=== PATIENT | female | born 1980 | race Caucasian/White ===

== ENCOUNTER 2017-10-08 06:44 | Day surgery (SDC) | payer OTHER, MEDICAID, SELFPAY ==
[2017-09-28 11:07] VITALS: BMI 25.2
[2017-10-08] VITALS (17 sets, daily range): BP systolic 85–116; BP diastolic 46–80; PULSE 58–128; RESP 12–26; TEMP 36.1–36.7; O2SAT 94–100; BMI 25.2
--- NOTE | 2017-10-08 | PATH_ITS ---
[facility] Accession Number: [id number] . 01 Material submitted: . UTERUS . 02 Diagnosis: Uterus, Hysterectomy: 1. Leiomyoma. 2. Disordered proliferative endometrium. 3. Negative for atypia or hyperplasia. 4. No evidence of malignancy. MRV/10/10/2017 . 02 Electronically signed: . Pili Guevara MD, Pathologist NPI- [id number] . 01 Gross description: . Received in formalin, labeled 1-Uterus, is a morcellated uterus (115 grams, 13.5 x 12.2 x 4.3 cm in aggregate). The ovaries, fallopian tubes, and cervix are absent. The specimen cannot be oriented, and the endometrium and myometrium cannot be grossly measured. The parenchyma is faustin-anne and contains a solid firm white whorled well-circumscribed homogenous nodule (1.8 x 1.5 x 1.3 cm). The serosa is pale anne smooth and shiny. Choir Director tissue is submitted in cassettes A1-A4. ([id number]) /[facility] . 02 Pathologist provided ICD-10: D25.9 . 02 CPT . 298946 Performed at: 01 [facility] [address], [place], [place] [id number] MD Vijay Mcmillan MD Phone: [phone] Performed at: [address] [facility] [address] [place], [place] [id number] MD Walt Simons MD Phone: [phone]
--- NOTE | 2017-10-08 06:50 | SUR.OPER ---
Lithotomy on padded OR bed. Shanor-Northvue Pad Positioner under torso. Head on pillow, arms padded and tucked at sides. Legs secured in padded yellow fins stirrups.
[2017-10-08] MEDS: LACTATED RINGERS 1,000 ML 42 ML IV (07:38)
--- NOTE | 2017-10-08 07:40 | PM.PREOP ---
Pre-operative Note Interval Note Pre-op Check: History & Physical Reviewed by Physician and Exam Performed
[2017-10-08] MEDS: CEFAZOLIN 2 GM/100 ML FROZ.PIGGY IV (07:50)
[2017-10-08] MEDS: BUPIVACAINE 0.5% W/ EPI (PF) 30 ML VIAL INJ (08:39)
[2017-10-08] MEDS: ROPIVACAINE 2% PF 2 MG/ML 20ML AMP 20 ML INJ (08:42)
[2017-10-08] MEDS: fentaNYL 100 MCG/2 ML INJ 50 MCG IV (10:05)
[2017-10-08] MEDS: LORazepam 2 MG/ML SYRINGE 0.5 MG IV (10:17)
[2017-10-08] MEDS: DEXTROSE 5%-LACTATED RINGERS 1,000 ML 100 ML IV ×2 (12:37→23:15)
[2017-10-08] MEDS: OXYCODONE/ACETAMINOPHEN 5/325 TABLET 2 TAB PO ×4 (12:40→23:17)
[2017-10-08] MEDS: KETOROLAC 30 MG/ML VIAL IV ×2 (12:44→17:27)
[2017-10-08] MEDS: LACTATED RINGERS 500 ML 1000 ML IV (19:51)
[2017-10-08] MEDS: DOCUSATE 250 MG CAPSULE PO (20:36)
--- NOTE | 2017-10-08 22:29 | PC.NURSE ---
Patient is a&ox3, 97% on RA, rates pain 4/10 when reassessed, states this is tolerable. BP dropped to 80's systolic, rechecked it 1 and 2 hours later, was still 80's systolic; per dr. Chaudhari, gave LR bolus 500 ml. BP up to 92 systolic when reassessed. patient denies nausea, dizziness, sob. ivy is draining to gravity, put out 650 ml this shift, clear and yellow. dressings are c/d/i, 1 tablet of percocet has been effective for pain control, per patient. HR was tachycardic during shift assessment, now 72 bpm. call light in reach. at bedside.
[2017-10-09] MEDS: KETOROLAC 30 MG/ML VIAL IV ×2 (00:07→06:11)
[2017-10-09 04:20] VITALS: BP 91/54; PULSE 71; RESP 16; TEMP 37.1; O2SAT 95
[2017-10-09] MEDS: OXYCODONE/ACETAMINOPHEN 5/325 TABLET 2 TAB PO ×5 (04:29→15:57)
--- NOTE | 2017-10-09 04:32 | PC.NURSE ---
Patient complains of 5/10 lower abdominal pain but only wanted to take 1 Percocet. Declined offer of warm blanket to help ease discomfort.
[2017-10-09 06:36] LABS: Add Manual Diff / Slide Review NO; Basophils Percent Auto 0.2 % (0-2); Eosinophils Percent Auto 0.5 % (2-4); Hematocrit 31.7 % (36-46); Hemoglobin 10.8 g/dL (12.0-16.0); Lymphocytes Percent Auto 27.6 % (25-40); Mean Corpuscular HGB Conc 34.1 % (30-36); Mean Corpuscular Hemoglobin 30.3 PG (26-34); Mean Corpuscular Volume 89.1 fL (80-100); Monocytes Percent Auto 12.6 % (3-14); Neutrophils Absolute Auto 3900 /uL (3000-5900); Neutrophils Percent Auto 59.1 % (50-75); Platelet Count 142 X10^3/uL (150-400); Red Blood Cell Count 3.55 X10^6/uL (4.0-5.2); Red Cell Distribution Width 13.2 % (11.6-14.8); White Blood Cell Count 6.6 X10^3/uL (4.5-11.0)
[2017-10-09 08:00] VITALS: BP 102/59; PULSE 84; RESP 17; TEMP 37.2; O2SAT 97
[2017-10-09 12:00] VITALS: BP 100/56; PULSE 77; RESP 15; TEMP 37.1; O2SAT 98
--- NOTE | 2017-10-09 13:02 | PC.NURSE ---
Dayshift Note: Mena removed this am at 0830. Pt with one small void at 1115. Encouraged to drink more fluids. Percocet for pain with pain well-cotnrolled, rated at 3-4/10 in abdomen. Denies nausea, tolerating diet. at bedside. Will continue to monitor, notify MD with changes.
--- NOTE | 2017-10-09 14:24 | CM.DANOTE ---
DCP Chart Review Patient is a 37 year old female who was admitted [facility] on 10/08/17 for Surgical procedure. Pt has [employer] for insurance and her PCP is Dr. Fonseca. Per MD, pt seemed to have tolerated procedure well. Per RN, pt has some pain and supportive spouse bedside but no needs currently identified. Pt independent in her room. SW did not complete bedside assessment due to triage needs. Plan: SW to follow for likely d/c home with spouse when medically stable. No SW needs at this time, please refer if indicated. SOLITARIO Noble
[2017-10-09 15:45] VITALS: BP 93/53; PULSE 62; RESP 16; TEMP 36.6; O2SAT 98
--- NOTE | 2017-10-09 17:19 | PC.NURSE ---
0058 Discharge note: Patient given discharge instructions, VSS and ambulating in room. Pain controlled with Percalone 2 tabs. Verbalized understanding of discharge instructions, discussed importance of F/U with Rosalina Castano in 2 weeks. Prescription given to patient as ordered. Patient accompanied with .
--- NOTE | 2017-11-27 05:02 | P.OP_ITS ---
Operative Date/Time/Diagnoses Date of procedure: 10/08/17 Time of procedure: 10:00 Pre-op diagnosis: Pelvic pain Menorrhagia Fibroids Post-op diagnosis: same Procedure: Procedures Operation Date: 10/08/17 07:45 Actual Procedures Side Surgeon p Laparoscopic Supracervical Hysterectomy Not Applicable Tarah Romano MD Indications: Menorrhagia Pelvic pain Fibroid Surgeon: Tarah Romano Endbander: Rita Chaudhari Anesthesia Type: General Operative Notes Findings: 6 week size anteverted uterus Normal ovaries Normal liver and gallbladder Normal appendix Closure Type: primary Specimen(s): uterus Applied: catheter (Removed at the end of the case) Estimated blood loss (mL): 20 Blood products transfused: none Procedure in detail: The patient was taken to the operating room where she was placed in the dorsal supine position. After adequate general endotracheal anesthesia was achieved, she was placed in the dorsal lithotomy position, and prepped and draped in the usual sterile fashion. A timeout was performed. A bivalve speculum was placed into the vagina and the anterior lip of the cervix grasped with a single-tooth tenaculum. The cervical os was sequentially dilated until the ZUMI uterine manipulator could pass easily into the endometrial cavity. The single-tooth tenaculum was removed from the anterior lip of the cervix, and the bivalve speculum was removed from the vagina. Attention was then turned to the abdomen where 6 mL of half percent Marcaine with epinephrine were injected in the umbilical fold. A 5 mm incision was made. The Verhees needle was placed into the peritoneal cavity, and its placement confirmed by aspiration and drop test. The abdominal cavity was insufflated with 2.8 L of CO2. The Verhees needle was removed. A 5 mm trocar was placed without difficulty. 2 other incisions were made midway between the pubic symphysis and umbilicus after 5 mL of half percent Marcaine with epinephrine were injected. These were 5 mm incisions. Two 5 mm trochars were placed under direct visualization. The right cornua of the uterus was grasped with an atraumatic grasper. Using the plasma kinetic with settings of 40 W the utero ovarian vessels were cauterized and cut. The round ligament and broad ligament was cauterized and cut with plasma kinetic. Hemostasis was achieved. The bladder flap was created using the plasma kinetic with cautery and cut [facility] across. The uterine arteries on the right side were extensively cauterized with plasma kinetic. All of this was repeated on the left side. The remainder of the bladder flap was created using the plasma kinetic, and the bladder taken down off the lower uterine segment and cervix. Using the L[place]oop , the cervix was amputated from the uterus 2 cm above the uterosacral ligaments , after the ZUMI uterine manipulator was removed from the uterus. There was a small amount of bleeding noted from the posterior edge of the cervix, and this was cauterized for hemostasis. A sponge stick was placed into the vagina. 6 mL of half percent Marcaine with epinephrine were injected above the pubic symphysis. A 12 mm trocar was placed. An Endobag was placed through the suprapubic trocar and the uterus placed into the Endobag. The trocar was removed. The Todd placed into the endobag. The uterus was hand morcellated in approximately 9 pieces. The Todd was removed from the peritoneal cavity. The Endobag was removed from the peritoneal cavity. The pelvis was copiously irrigated with warm normal saline. No bleeding was noted. 20 cc of 0.2% ropivacaine were placed over the pedicles. The instruments were removed from the abdomen. The CO2 was allowed to escape. The suprapubic incision was closed on the fascia with 0 Vicryl. All of the incisions were closed with 4-0 undyed Vicryl in a subcuticular fashion. Steri-Strips, 2 x 2, and op sites were placed over the incisions. The moistened sponge stick was removed from the vagina. Sponge, lap, and instrument counts were correct x-2. The patient tolerated the procedure well, was taken to PACU in stable condition. Complications: none Post-operative Condition: stable Disposition: PACU Plan for aftercare: Home after recovery
== END 2017-10-09 16:35 | disposition home or self-care (01) ==
LOC: OR 06:45 → AC 09:45
PROVIDERS: PCP Family Medicine; Visit Provider Obstetrics & Gynecology
PROC: 0UT94ZL Resection of Uterus, Supracervical, Percutaneous Endoscopic Approach (ICD-10-PCS; CPT 58541; principal; 2017-10-08 07:45)
DX: D25.9 Leiomyoma of uterus, unspecified (principal)
CPT/HCPCS: 58541; 36415; 85025; 88305; J0131; J0690; J1100; J1885; J2060; J2250; J2405; J2704; J2795; J3010; J7121

== ENCOUNTER → 2018-11-18 09:00 | Outpatient (CLI) | payer OTHER, MEDICAID, SELFPAY ==
[2017-10-08 10:51] VITALS: BMI 25.2
[2018-11-18 10:14] LABS: Hematocrit 39.6 % (36-46); Hemoglobin 13.1 g/dL (12.0-16.0); Mean Corpuscular HGB Conc 33.2 % (30-36); Mean Corpuscular Hemoglobin 29.9 PG (26-34); Platelet Count 191 X10^3/uL (150-400); Red Cell Distribution Width 12.8 % (11.6-14.8); White Blood Cell Count 4.2 X10^3/uL (4.5-11.0)
[2018-11-18 10:35] LABS: Alanine Aminotransferase 21 IU/L (9-52); Albumin 4.3 g/dL (3.5-5.0); Albumin Globulin Ratio 1.4 (1.0-2.8); Alkaline Phosphatase 51 U/L (38-126); Aspartate Aminotransferase 19 IU/L (14-36); BUN Creatinine Ratio 17.1 (6-22); Bilirubin Total 0.6 mg/dL (0.2-1.3); Blood Urea Nitrogen 12 mg/dL (7-17); Carbon Dioxide 29 mmol/L (22-32); Chloride 102 mmol/L (98-107); Cholesterol 210 mg/dL (140-199); Estimated Glomerular Filt Rate > 60.0 mL/min (>60); Globulin 3.1 g/dL (1.7-4.1); Glucose 95 mg/dL (70-100); HDL Cholesterol 59 mg/dL (40-60); HEMOLYSIS < 15 (0-50); LDL Cholesterol Calculated 134 mg/dL (<100); Potassium 4.3 mmol/L (3.4-5.1); Sodium 137 mmol/L (137-145); Total Protein 7.4 g/dL (6.3-8.2); Triglycerides 83 mg/dL (35-150)
[2018-11-18 10:44] LABS: Neutrophils Absolute Manual 2436 /uL (3000-5900); RBC Morphology Normal Morphology; Total Cells Counted 100
[2018-11-18 11:05] LABS: TSH w/ Reflex to FT4 1.67 uIU/mL (0.47-4.68)
[2018-11-18 11:21] LABS: Vitamin B12 437 pg/mL (239-931)
== END ==
PROVIDERS: PCP Family Medicine; Visit Provider Family Medicine
DX: C71.9 Malignant neoplasm of brain, unspecified (principal); D50.9 Iron deficiency anemia, unspecified; K59.01 Slow transit constipation; Z98.84 Bariatric surgery status
CPT/HCPCS: 36415; 80053; 80061; 82607; 84443; 85025

== ENCOUNTER → 2019-03-06 15:19 | Outpatient (CLI) | payer OTHER, MEDICAID, SELFPAY ==
[2017-10-08 10:51] VITALS: BMI 25.2
--- NOTE | 2019-03-06 | DI.MG.S_ITS ---
BILATERAL DIGITAL SCREENING MAMMOGRAM 3D/2D WITH CAD: 03/06/2019 CLINICAL: Routine screening. Comparison is made to exam dated: 04/25/2017 [facility]. The tissue of both breasts is heterogeneously dense. This may lower the sensitivity of mammography. Current study was also evaluated with a Computer Aided Detection (CAD) system. No significant masses, calcifications, or other findings are seen in either breast. There has been no significant interval change. IMPRESSION: NEGATIVE There is no mammographic evidence of malignancy. A 1 year screening mammogram is recommended. This exam was interpreted at Station ID: [id number]. NOTE: For mammograms, a report in lay terms will be sent to the patient. Approximately 15% of breast malignancies will not be visualized mammographically. In the management of a palpable breast mass, a negative mammogram must not discourage biopsy of a clinically suspicious lesion. Electronically Signed By: Vijay espinoza/anibal:03/06/2019 16:05:39 letter sent: Normal Exam ACR BI-RADS Category 1: Negative 3341F
== END ==
PROVIDERS: PCP Family Medicine; Visit Provider Family Medicine
DX: Z12.31 Encounter for screening mammogram for malignant neoplasm of breast (principal)
CPT/HCPCS: 77063; 77067

== ENCOUNTER → 2020-04-02 11:57 | Outpatient (CLI) | payer OTHER, MEDICAID, SELFPAY ==
[2017-10-08 10:51] VITALS: BMI 25.2
[2020-04-02 13:01] LABS: Add Manual Diff / Slide Review NO; Basophils Absolute Auto 0 /uL (0-100); Basophils Percent Auto 0.6 % (0-2); Eosinophils Absolute Auto 0 /uL (0-450); Eosinophils Percent Auto 0.6 % (2-4); Hematocrit 39.1 % (36-46); Hemoglobin 13.2 g/dL (12.0-16.0); Lymphocytes Absolute Auto 1200 /uL (1100-4500); Lymphocytes Percent Auto 24.7 % (25-40); Mean Corpuscular HGB Conc 33.8 % (30-36); Mean Corpuscular Volume 88.7 fL (80-100); Monocytes Absolute Auto 400 /uL (0-900); Monocytes Percent Auto 9.6 % (3-14); Neutrophils Absolute Auto 3000 /uL (1500-7000); Neutrophils Percent Auto 64.5 % (50-75); Platelet Count 190 X10^3/uL (150-400); Red Blood Cell Count 4.41 X10^6/uL (4.0-5.2); Red Cell Distribution Width 12.6 % (11.6-14.8); White Blood Cell Count 4.7 X10^3/uL (4.5-11.0)
[2020-04-02 13:53] LABS: Alanine Aminotransferase 21 IU/L (<35); Albumin 4.5 g/dL (3.5-5.0); Albumin Globulin Ratio 1.3 (1.0-2.8); Alkaline Phosphatase 55 U/L (38-126); Aspartate Aminotransferase 26 IU/L (14-36); BUN Creatinine Ratio 14.9 (6-22); Bilirubin Total 0.6 mg/dL (0.2-1.3); Blood Urea Nitrogen 10 mg/dL (7-17); Calcium 9.3 mg/dL (8.4-10.2); Carbon Dioxide 29 mmol/L (22-32); Chloride 102 mmol/L (98-107); Estimated Glomerular Filt Rate > 60.0 mL/min (>60); Globulin 3.4 g/dL (1.7-4.1); Glucose 94 mg/dL (70-100); HEMOLYSIS < 15 (0-50); Potassium 4.4 mmol/L (3.4-5.1); Sodium 137 mmol/L (137-145); Total Protein 7.9 g/dL (6.3-8.2)
[2020-04-02 16:19] LABS: Follicle Stimulating Hormone 7.81 mIU/mL; Luteinizing Hormone 8.45 mIU/mL
[2020-04-02 16:35] LABS: Estradiol, Total 96.8 pg/mL
[2020-04-05 13:32] LABS: Thyroid Stimulating Hormone 1.05 uIU/mL (0.47-4.68)
== END ==
PROVIDERS: PCP Family Medicine; Referring Provider Family Medicine; Visit Provider Family Medicine
DX: R23.2 Flushing (principal); R53.83 Other fatigue
CPT/HCPCS: 36415; 80053; 82670; 83001; 83002; 84443; 85025

== ENCOUNTER → 2020-04-29 16:57 | Outpatient (CLI) | payer OTHER, MEDICAID, SELFPAY ==
[2017-10-08 10:51] VITALS: BMI 25.2
--- NOTE | 2020-04-29 17:00 | DI.MG.S_ITS ---
BILATERAL DIGITAL SCREENING MAMMOGRAM 3D/2D WITH CAD: 04/29/2020 CLINICAL: Routine screening. Comparison is made to exams dated: 03/06/2019 mammogram and 04/25/2017 mammogram - [facility]. The tissue of both breasts is heterogeneously dense. This may lower the sensitivity of mammography. Current study was also evaluated with a Computer Aided Detection (CAD) system. No significant masses, calcifications, or other findings are seen in either breast. There has been no significant interval change. IMPRESSION: NEGATIVE There is no mammographic evidence of malignancy. A 1 year screening mammogram is recommended. This exam was interpreted at Station ID: [id number]. NOTE: For mammograms, a report in lay terms will be sent to the patient. Approximately 15% of breast malignancies will not be visualized mammographically. In the management of a palpable breast mass, a negative mammogram must not discourage biopsy of a clinically suspicious lesion. Electronically Signed By: Ephraim degroot/anibal:04/29/2020 17:24:55 letter sent: Normal Exam ACR BI-RADS Category 1: Negative 3341F
== END ==
PROVIDERS: PCP Family Medicine; Referring Provider Family Medicine; Visit Provider Family Medicine
DX: Z12.31 Encounter for screening mammogram for malignant neoplasm of breast (principal)
CPT/HCPCS: 77063; 77067

== ENCOUNTER → 2021-11-25 06:52 | Outpatient (CLI) | payer OTHER, MEDICAID, SELFPAY ==
[2017-10-08 10:51] VITALS: BMI 25.2
[2021-11-25 08:30] LABS: Add Manual Diff / Slide Review NO; Basophils Absolute Auto 0 /uL (0-100); Basophils Percent Auto 1.1 % (0-2); Eosinophils Absolute Auto 100 /uL (0-450); Hematocrit 36.5 % (36-46); Hemoglobin 12.5 g/dL (12.0-16.0); Lymphocytes Absolute Auto 1700 /uL (1100-4500); Lymphocytes Percent Auto 41.3 % (25-40); Mean Corpuscular HGB Conc 34.2 % (30-36); Mean Corpuscular Hemoglobin 30.3 PG (26-34); Mean Corpuscular Volume 88.6 fL (80-100); Monocytes Absolute Auto 500 /uL (0-900); Monocytes Percent Auto 12.3 % (3-14); Neutrophils Absolute Auto 1800 /uL (1500-7000); Neutrophils Percent Auto 43.3 % (50-75); Platelet Count 190 X10^3/uL (150-400); Red Blood Cell Count 4.12 X10^6/uL (4.0-5.2); White Blood Cell Count 4.1 X10^3/uL (4.5-11.0)
[2021-11-25 09:24] LABS: HEMOLYSIS < 15 (0-50); Iron 86 ug/dL (37-170)
[2021-11-25 09:28] LABS: Alanine Aminotransferase 18 IU/L (<35); Albumin 4.1 g/dL (3.5-5.0); Albumin Globulin Ratio 1.5 (1.0-2.8); Alkaline Phosphatase 45 U/L (38-126); Aspartate Aminotransferase 21 IU/L (14-36); BUN Creatinine Ratio 17.8 (6-22); Bilirubin Total 0.3 mg/dL (0.2-1.3); Blood Urea Nitrogen 13 mg/dL (7-17); Calcium 8.5 mg/dL (8.4-10.2); Carbon Dioxide 27 mmol/L (22-32); Chloride 104 mmol/L (98-107); Cholesterol 206 mg/dL (140-199); Estimated Glomerular Filt Rate > 60 mL/min (>60); Globulin 2.7 g/dL (1.7-4.1); Glucose 89 mg/dL (70-100); HDL Cholesterol 68 mg/dL (40-60); HEMOLYSIS < 15 (0-50); LDL Cholesterol Calculated 126 mg/dL (<100); Potassium 4.1 mmol/L (3.4-5.1); Sodium 138 mmol/L (137-145); Total Protein 6.8 g/dL (6.3-8.2); Triglycerides 62 mg/dL (35-150)
[2021-11-25 09:35] LABS: Percent Iron Saturation 25 % (15-50); Total Iron Binding Capacity 341 ug/dL (265-497); Transferrin 267 mg/dL (206-381)
[2021-11-25 09:59] LABS: TSH w/ Reflex to FT4 2.77 uIU/mL (0.47-4.68)
== END ==
PROVIDERS: PCP Family Medicine; Referring Provider Family Medicine; Visit Provider Family Medicine
DX: D50.9 Iron deficiency anemia, unspecified (principal); R53.83 Other fatigue
CPT/HCPCS: 36415; 80053; 80061; 83540; 83550; 84443; 85025

== ENCOUNTER → 2021-12-16 15:40 | Outpatient (CLI) | payer OTHER, MEDICAID, SELFPAY ==
[2017-10-08 10:51] VITALS: BMI 25.2
--- NOTE | 2021-12-16 15:41 | DI.MG.S_ITS ---
BILATERAL DIGITAL SCREENING MAMMOGRAM 3D/2D WITH CAD: 12/16/2021 CLINICAL: Routine screening. Comparison is made to exams dated: 04/29/2020 mammogram, 03/06/2019 mammogram, and 04/25/2017 mammogram - [facility]. The tissue of both breasts is heterogeneously dense. This may lower the sensitivity of mammography. Current study was also evaluated with a Computer Aided Detection (CAD) system. No significant masses, calcifications, or other findings are seen in either breast. There has been no significant interval change. IMPRESSION: NEGATIVE There is no mammographic evidence of malignancy. A 1 year screening mammogram is recommended. Based on the Tyrer Cuzick model (a risk assessment model) the patient's lifetime risk is 12.4% and her 10 year risk is 2.0%. According to the ACR, ACS, and NCCN guidelines, an annual breast MRI exam along with mammogram is recommended if the patient's lifetime risk is 20% or greater. This exam was interpreted at Station ID: [id number]. NOTE: For mammograms, a report in lay terms will be sent to the patient. Approximately 15% of breast malignancies will not be visualized mammographically. In the management of a palpable breast mass, a negative mammogram must not discourage biopsy of a clinically suspicious lesion. Electronically Signed By: Dillan power/anibal:12/19/2021 11:38:21 letter sent: Normal Exam ACR BI-RADS Category 1: Negative 3341F
== END ==
PROVIDERS: PCP Family Medicine; Referring Provider Family Medicine; Visit Provider Family Medicine
DX: Z12.31 Encounter for screening mammogram for malignant neoplasm of breast (principal)
CPT/HCPCS: 77063; 77067

== ENCOUNTER → 2023-09-28 14:29 | Outpatient (CLI) | payer OTHER, SELFPAY ==
[2017-10-08 10:51] VITALS: BMI 25.2
--- NOTE | 2023-09-28 14:31 | DI.MG.S_ITS ---
BILATERAL DIGITAL SCREENING MAMMOGRAM 3D/2D WITH CAD: 09/28/2023 CLINICAL: Routine screening. Family history of breast cancer. Comparison is made to exams dated: 12/16/2021 mammogram, 04/29/2020 mammogram, and 03/06/2019 mammogram - [facility]. Both breasts are heterogeneously dense, which may obscure small masses (category c / 51-75% glandular tissue). Current study was also evaluated with a Computer Aided Detection (CAD) system. No significant masses, calcifications, or other findings are seen in either breast. There has been no significant interval change. IMPRESSION: NEGATIVE There is no mammographic evidence of malignancy. A 1 year screening mammogram is recommended. Based on the Tyrer Cuzick model (a risk assessment model) the patient's lifetime risk is 17.8% and her 10 year risk is 3.4%. According to the ACR, ACS, and NCCN guidelines, an annual breast MRI exam along with mammogram is recommended if the patient's lifetime risk is 20% or greater. This exam was interpreted at Station ID: [id number]. NOTE: For mammograms, a report in lay terms will be sent to the patient. Approximately 15% of breast malignancies will not be visualized mammographically. In the management of a palpable breast mass, a negative mammogram must not discourage biopsy of a clinically suspicious lesion. Electronically Signed By: Ephraim degroot/anibal:09/28/2023 16:26:04 letter sent: Normal Exam ACR BI-RADS Category 1: Negative 3341F
== END ==
PROVIDERS: PCP Family Medicine; Referring Provider Family Medicine; Visit Provider Family Medicine
DX: Z12.31 Encounter for screening mammogram for malignant neoplasm of breast (principal); Z80.3 Family history of malignant neoplasm of breast; R92.333 Mammographic heterogeneous density, bilateral breasts
CPT/HCPCS: 77063; 77067

== ENCOUNTER → 2024-09-11 08:29 | Outpatient (CLI) | payer OTHER, SELFPAY ==
[2017-10-08 10:51] VITALS: BMI 25.2
[2024-09-11 09:12] LABS: Add Manual Diff / Slide Review NO; Basophils Absolute Auto 0 /uL (0-100); Eosinophils Absolute Auto 0 /uL (0-450); Eosinophils Percent Auto 1.1 % (2-4); Hemoglobin 13.7 g/dL (12.0-16.0); Lymphocytes Absolute Auto 1400 /uL (1100-4500); Lymphocytes Percent Auto 34.2 % (25-40); Mean Corpuscular HGB Conc 35.2 % (30-36); Mean Corpuscular Hemoglobin 31.6 PG (26-34); Mean Corpuscular Volume 89.7 fL (80-100); Monocytes Absolute Auto 400 /uL (0-900); Monocytes Percent Auto 10.8 % (3-14); Neutrophils Absolute Auto 2200 /uL (1500-7000); Neutrophils Percent Auto 52.9 % (50-75); Platelet Count 233 X10^3/uL (150-400); Red Blood Cell Count 4.35 X10^6/uL (4.0-5.2); Red Cell Distribution Width 13.4 % (11.6-14.8); White Blood Cell Count 4.1 X10^3/uL (4.5-11.0)
[2024-09-11 09:20] LABS: Hemoglobin A1C% w Est Avg Glu 4.7 % (4.0-6.0)
[2024-09-11 09:25] LABS: HEMOLYSIS < 15 (0-50)
[2024-09-11 09:32] LABS: Alanine Aminotransferase 14 IU/L (<35); Albumin 4.7 g/dL (3.5-5.0); Albumin Globulin Ratio 1.7 (1.0-2.8); Alkaline Phosphatase 48 U/L (38-126); Aspartate Aminotransferase 20 IU/L (14-36); BUN Creatinine Ratio 23.8 (6-22); Bilirubin Total 0.5 mg/dL (0.2-1.3); Blood Urea Nitrogen 20 mg/dL (7-17); Calcium 9.6 mg/dL (8.4-10.2); Carbon Dioxide 26 mmol/L (22-32); Chloride 104 mmol/L (98-107); Cholesterol 271 mg/dL (140-199); Estimated Glomerular Filt Rate > 60 mL/min (>60); Globulin 2.8 g/dL (1.7-4.1); Glucose 92 mg/dL (70-99); HDL Cholesterol 79 mg/dL (40-60); LDL Cholesterol Calculated 174 mg/dL (<100); Potassium 4.3 mmol/L (3.4-5.1); Sodium 139 mmol/L (137-145); Total Protein 7.5 g/dL (6.3-8.2); Triglycerides 88 mg/dL (35-150)
[2024-09-11 09:39] LABS: Total Iron Binding Capacity 319 ug/dL (265-497)
[2024-09-11 09:46] LABS: Vitamin D 25 Hydroxy (D3) 36.9 ng/mL (30.0-100.0)
[2024-09-11 09:47] LABS: Follicle Stimulating Hormone 7.54 mIU/mL; Free T4, Direct Thyroxine 1.17 ng/dL (0.78-2.19); T4 Total Thyroxine 9.18 ug/dL (5.5-11.0)
[2024-09-11 10:00] LABS: Thyroid Stimulating Hormone 1.49 uIU/mL (0.47-4.68)
[2024-09-11 10:02] LABS: Estradiol, Total 99.4 pg/mL
[2024-09-11 10:08] LABS: Ferritin 18 ng/mL (6-137)
[2024-09-11 10:20] LABS: Vitamin B12 935 pg/mL (239-931)
== END ==
PROVIDERS: Obstetrics & Gynecology; PCP Family Medicine; Referring Provider Family Medicine; Visit Provider Family Medicine
DX: E55.9 Vitamin D deficiency, unspecified (principal); E53.8 Deficiency of other specified B group vitamins; R53.81 Other malaise; D49.6 Neoplasm of unspecified behavior of brain; Z13.228 Encounter for screening for other metabolic disorders; Z13.29 Encounter for screening for other suspected endocrine disorder; N95.1 Menopausal and female climacteric states
CPT/HCPCS: 36415; 80053; 80061; 82306; 82607; 82670; 82672; 82728; 83001; 83036; 83550; 83735; 84144; 84402; 84403; 84436; 84439; 84443; 85025

== ENCOUNTER 2025-01-22 06:45 | Day surgery (SDC) | payer OTHER, SELFPAY ==
[2024-10-23 14:07] VITALS: BMI 25.2
--- NOTE | 2025-01-22 | PATH_ITS ---
[facility] Accession Number: [id number] No. of containers..01 Tissue . 01 Material submitted: . small bowel - ILEUM, TERMINAL . 01 Diagnosis: TERMINAL ILEUM, BIOPSY: Ileal mucosa with no diagnostic abnormality. Negative for active inflammation, granulomas, dysplasia, or malignancy. MRV 01/29/2025 1754 Local . 01 Electronically signed: . Kuldip Armstrong MD, PhD, Pathologist NPI- [id number] . 01 Gross description: . Received is one formalin-filled container labeled with the patient's name labeled terminal ileum, are two fragments of anne, soft tissue which range in size from 0.2 x 0.1 x 0.1 cm to 0.4 x 0.2 x 0.1 cm. All fragments are totally submitted in cassette A1. ([id number]) /MARIA DEL CARMEN 01/27/20252049 Local . 01 Pathologist provided ICD-10: R19.4 . 01 CPT . 466759 Specimen Comment: A courtesy copy of this report has been sent to [phone] Performed at: [address] [id number] MD Vijay Mcmillan MD Phone: [phone]
[2025-01-22 07:11] VITALS: BP 114/77; PULSE 71; RESP 16; TEMP 36.2; O2SAT 97
[2025-01-22] MEDS: LACTATED RINGERS 1,000 ML 42 ML IV (07:24)
--- NOTE | 2025-01-22 07:41 | P.HP_ITS ---
History of Present Illness History of Present Illness Date Patient Seen: 01/22/25 Time Patient Seen: 07:41 [place] [facility] Narrative: Sherlyn is a 44-year-old woman who presents with rectal bleeding and rectal spasms. See the office note from November for details. [facility] Medical History (Updated 01/22/25 @ 07:41 by Justus Costa MD) Status post chemoradiation Menorrhagia Depression Surgical History (Updated 11/12/17 @ 12:02 by Fiona Barron) S/P laparoscopic supracervical hysterectomy (10/08/17) H/O dilation and curettage (10/17/13) History of brain surgery (2016) H/O cardiac radiofrequency ablation (06/03/13) History of endometrial ablation (10/17/13) History of bilateral salpingectomy (10/17/13) Status post dilation and curettage Status post delivery Status post gastric banding surgery Social History marital status: household members: spouse Smoking Status: Never smoker alcohol intake: never substance use type: does not use Meds Home Medications and Allergies Home Medications ?Medication ?Instructions ?Recorded ?Confirmed ?Type semaglutide 0.25 mg or 0.5 mg (2 0.5 mg SUBCUT QWEEK 0 09/04/24 01/21/25 History mg/3 mL) subcutaneous pen injector (Ozempic) lacosamide 50 mg tablet 50 mg PO BID 12/02/24 History estradiol 0.075 mg/24 hr 1 patch transdermal 2XW #24 ea 12/18/24 01/22/25 Rx semiweekly transdermal patch (Stephanie) zolpidem 5 mg tablet (Ambien) 5 mg PO BEDTIME #30 tabs 12/18/24 01/22/25 Rx Allergies Allergy/AdvReac Type Severity Reaction Status Date / Time No Known Drug Allergies Allergy Verified 01/22/25 07:08 Exam Vital Signs (past 8 hours): - 01/22/25 07:11 Temperature 97.1 F L Pulse Rate 71 Respiratory Rate 16 Blood Pressure 114/77 Pulse Oximetry 97 Oxygen Delivery Method Room Air Oxygen Delivery Method Room Air Const General: healthy appearing Assessment & Plan Assessment and plan (1) Slow transit constipation: Status: None (2) Rectal bleeding: Status: Acute Plan Colonoscopy Time-Based Coding :: [TOTAL MINUTES] spent with patient and on the chart (including review of chart, obtaining history, exam, reviewing outside data, placing orders, documenting exam and treatment plan, and counseling patient) on [DATE]. PROFEE Sample Case Porter Document charge(s): No
[2025-01-22 08:10] VITALS: BP 106/65; PULSE 79; RESP 16; TEMP 36.1; O2SAT 98
--- NOTE | 2025-01-22 08:10 | P.OP.COLON_ITS ---
Operative Date/Time/Diagnoses Date of procedure: 01/22/25 Time of procedure: 08:10 Pre-op diagnosis: Rectal bleeding Post-op diagnosis: same Procedure & Clinicians Study performed: Colonoscopy Same procedure(s) as scheduled: Yes Surgeon: Justus Costa Anesthesia Type: MAC +/- Procedure Notes Procedure in detail: Surgeon: Justus Costa MD Anesthesia: Ivan Cole MD Procedure: The patient was brought to the endoscopy suite, placed in left lateral decubitus position. The patient was connected to monitoring devices. A time-out was performed. Sedation was administered. Once the patient was adequately sedated, a digital rectal exam was performed and was normal. The scope was then inserted and advanced to the cecum where the appendiceal orifice was identified and photographed. The terminal ileum was intubated and no abnormalities were seen. Random biopsies were taken with the cold forceps from the terminal ileum mucosa. The scope was then slowly withdrawn over greater than 6 minutes. The mucosa was thoroughly inspected. No abnormalities were f ound. The scope was retroflexed in the rectum. No other abnormalities were seen in the rectum. The scope was straightened and removed. The patient was awakened and brought to recovery. Scope withdrawal time: 7 minutes Sedation time: 12 minutes EBL: 5 mL Findings: Grossly normal colon and terminal ileum Post-procedure Disposition: PACU
[2025-01-22 08:15] VITALS: BP 105/74; PULSE 78; RESP 16; O2SAT 98
[2025-01-22 08:20] VITALS: BP 102/74; PULSE 78; RESP 16; TEMP 36.7; O2SAT 98
== END 2025-01-22 08:36 | disposition home or self-care (01) ==
PROVIDERS: PCP Family Medicine; Referring Provider Surgery; Visit Provider Surgery
PROC: 0DJD8ZZ Inspection of Lower Intestinal Tract, Via Natural or Artificial Opening Endoscopic (ICD-10-PCS; CPT 45378; principal; 2025-01-22 07:45)
DX: K62.5 Hemorrhage of anus and rectum (principal); K59.01 Slow transit constipation
CPT/HCPCS: 45380; J2250; J2704